=== PATIENT | female | born 1980 | race Caucasian/White ===

== ENCOUNTER → 2016-08-05 | Outpatient (CLI) | payer OTHER | LOC: FIMAGING 07:58 | PROVIDERS: ATTEND Obstetrics & Gynecology | DX: N92.0 Excessive and frequent menstruation with regular cycle (principal) ==

== ENCOUNTER 2018-06-22 20:28 | Emergency (ER) | payer OTHER ==
--- NOTE | 2018-06-22 21:04 | EDPHY ---
H & P Stated Complaint: c/o intermittent sharp abd pain x 4 days Time Seen by Provider: 06/22/18 20:38 HPI/ROS: CHIEF COMPLAINT: and abdominal pain History by patient HISTORY OF PRESENT ILLNESS: 37-year-old woman presents complaining of approximately 1 week of bilateral lower abdominal pain which she says feels pulling and sharp and intermittent and somewhat like symptoms she gets when she gets her menses. However her last menstrual period was May 24 and her tano tells her that she is late. This prompted her to take a home test which was positive x2. She denies any nausea or vomiting or change in bowels. She has had no vaginal bleeding or discharge. She denies any urinary symptoms. She denies any back pain. She has had no fainting. She has has had some similar pain like symptoms for over year and had a ovarian ultrasound in the past. She is concerned because her essrrd-ra-hsm had an ectopic a few months ago. Patient's previous 2 pregnancies were delivered by due to failure of labor to progress at term. REVIEW OF SYSTEMS: As in HPI, and all other systems reviewed and are negative Source: Patient - Personal History LMP (Females 10-55): Over 28 Days Ago Current Tetanus Diphtheria and Acellular Pertussis (TDAP): Yes Tetanus Vaccine Date: < 10 years - Medical/Surgical History Hx Asthma: No Hx Chronic Respiratory Disease: No Hx Diabetes: No Hx Cardiac Disease: No Hx Renal Disease: No Hx Cirrhosis: No Hx Alcoholism: No Hx HIV/AIDS: No Hx Splenectomy or Spleen Trauma: No Other PMH: none reported - Social History Smoking Status: Never smoked - Physical Exam Exam: General Appearance: Alert, nontoxic-appearing. Eyes: Pupils equal and round, extraocular movements intact, no pallor or injection. Mouth: Mucous membranes moist. Pharynx clear Respiratory: Normal, effort, lungs are clear to auscultation. No wheezes, rales or rhonchi. Cardiovascular: Regular rate and rhythm. S1, S2, no murmurs, gallops or rubs appreciated Gastrointestinal: bowel sounds present, Abdomen is soft and mild bilateral lower quadrant suprapubic tenderness, no masses, no rebound or guarding Back: No CVA tenderness, no bony tenderness Neurological: Awake, alert and oriented x 3, no pronator drift, normal gait, no pronator drift Skin: Warm and dry, no rashes. Musculoskeletal: No deformities or tenderness. Extremities: full range of motion, no edema Psychiatric: Patient has normal affect, there is no agitation. Constitutional: Initial Vital Signs Temperature (C) 36.9 C 06/22/18 20:40 Heart Rate 106 H 06/22/18 20:40 Respiratory Rate 16 06/22/18 20:40 Blood Pressure 131/85 H 06/22/18 20:40 O2 Sat (%) 99 06/22/18 20:40 O2 Delivery Mode Room Air Allergies/Adverse Reactions: No Known Allergies Allergy (Unverified 05/06/16 19:55) Home Medications: Medication Instructions Recorded NK [No Known Home Meds] 05/06/16 Medical Decision Making - Diagnostics Imaging Results: Imaging Impressions Obstetrics Ultrasound 06/22/18 21:01 Impression: No intrauterine is visualized. Complex cystic lesion in the left adnexa which could represent a corpus luteum cyst measuring 2.3 cm. However ectopic in the left ovary cannot be excluded with the lack of an intrauterine . Recommend follow-up and correlation with beta hCG. Results called and discussed with Laura Wallace MD at 06/22/2018 22:39. ED Course/Re-evaluation: 37-year-old presents in early with lower abdominal pain. I performed a rapid screening bedside ultrasound which showed no evidence of free fluid in her pelvis. I was unable to visualize an intrauterine transabdominally. Quantitative HCG and AB Rh typing have been sent. Formal ultrasound to evaluate for ectopic has been ordered. I discussed the ultrasound with the radiologist. No IUP was visualized. There is a complex mass in the left adnexa which the radiologist thought was possibly a corpus luteum cyst. There is minimal free fluid. Patient's heart rate remains slightly elevated in the ED. I discussed the case with Dr. Saucedo, on- call for OB. She recommends repeat beta HCG in 48 hr and she will follow up with the patient after that unless the patient is unstable in which case she will admit the patient for observation. H&H was slightly low with hemoglobin 11.2 compared to prior 4 years ago of 12.4. However, her tachycardia has resolved her blood pressure is stable. I think it is reasonable at this point to discharge the patient have a repeat HCG in 48 hr with close return precautions. We discussed return precautions including but not limited to onset of vaginal bleeding, worsening pain, fainting shortness of breath chest pain or other worsening. Patient understands and is agreeable to this plan. - Data Points Laboratory Results: 06/22/18 06/22/18 06/22/18 23:04 21:02 21:02 POC Hgb 11.2 gm/dL L gm/dL (12.6-16.3) POC Hct 33 % L % (38-47) POC Sodium 140 mEq/L mEq/L (135-145) POC Potassium 3.8 mEq/L mEq/L (3.3-5.0) POC Chloride 107 mEq/L mEq/L (97-110) POC BUN 11 mg/dL mg/dL (7-23) POC Creatinine 0.9 mg/dL mg/dL (0.6-1.0) POC Glucose 96 mg/dL mg/dL (70-100) Beta HCG, Quant 1884.60 mIU/mL H mIU/mL (0.00-4.83) Patient ABO/Rh B NEGATIVE Medications Given: Discontinued Medications Sodium Chloride (Ns) 1,000 mls @ 0 mls/hr IV ONCE ONE; Wide Open PRN Reason: Protocol Stop: 06/22/18 21:11 Last Admin: 06/22/18 21:14 Dose: 1,000 mls Point of Care Test Results: Chemistry 06/22/18 23:04 POC Sodium 140 mEq/L mEq/L (135-145) POC Potassium 3.8 mEq/L mEq/L (3.3-5.0) POC Chloride 107 mEq/L mEq/L (97-110) POC BUN 11 mg/dL mg/dL (7-23) POC Creatinine 0.9 mg/dL mg/dL (0.6-1.0) POC Glucose 96 mg/dL mg/dL (70-100) ISTAT H&H 06/22/18 23:04 POC Hgb 11.2 gm/dL L gm/dL (12.6-16.3) POC Hct 33 % L % (38-47) Departure - Departure Disposition: Home, Routine, Self-Care Clinical Impression: Qualifiers: Weeks of gestation: less than 8 weeks Qualified Code(s): Z3A.01 - Less than 8 weeks gestation of Abdominal pain during Qualifiers: Trimester: first trimester Qualified Code(s): O26.891 - Other specified related conditions, first trimester; R10.9 - Unspecified abdominal pain; R10.9 - Unspecified abdominal pain Condition: Fair Instructions: Ectopic (DC), (ED) Additional Instructions: Please have your beta HCG repeated on Monday at the [facility]. Dr. Saucedo, from Obstetrics and Gynecology will call you with the results and arrange for follow-up. Please call the ER or Dr. Saucedo if you have not heard from her after the results of your test on Monday. Return immediately to the emerged department if he develops any vaginal bleeding , worsening pain, fainting or other new concerns. Referrals: Patient,NotPresent [Primary Care Provider] - As per Instructions Eunice Saucedo MD [Medical Doctor] - As per Instructions
[2018-06-22] MEDS ORDERED: NS 1,000 ML IV ONE (21:10)
[2018-06-22 23:02] VITALS: BP 118/62
== END 2018-06-22 23:30 | disposition home or self-care (01) ==
LOC: CED 20:28 → EEVIPCON 20:28 → CED 23:30
DX: O26.891 Other specified pregnancy related conditions, first trimester (principal); R10.9 Unspecified abdominal pain; E86.9 Volume depletion, unspecified; Z3A.01 Less than 8 weeks gestation of pregnancy
CPT/HCPCS: 82435-PO; 82565-PO; 82947-PO; 84132-PO; 84295-PO; 84520-PO; 85014-ER; 96360-ER

== ENCOUNTER 2018-06-23 15:39 | Observation (INO) | payer OTHER ==
[2018-06-23] MEDS ORDERED: METHOTREXATE 25 MG/ML SYRINGE IM ONE (15:59)
[2018-06-23 16:24] LABS: PLATELET COUNT 210 10^3/uL (150-400)
--- NOTE | 2018-06-23 17:52 | GHP ---
DATE OF ADMISSION: 06/23/2018 HISTORY: Upon admission, the patient is a 37-year-old, G3, P2, female who presents to Labor and delivery today deciding that she wants to proceed with methotrexate treatment for an early pregn avery with concern for ectopic in light of the continuing left lower quadrant pain. The patient was e valuated in the emergency room on June 22, at which time she presented because of bilateral lower abdominal pain happening off and on for the prior week. The patient reports a continuous pain approx imately 2/10 and a pulling sensation in her left lower quadrant, but sharper episodes of pain up to 5 /10 that have been persisting. The patient states she is about 4-1/2 weeks from her sure last menstr ual period on May 24, and had 2 positive tests at home. When she went to the emerge ncy room last night, her was confirmed with an HCG level of 1884. The patient had an ultra sound on June 22 that did not visualize an intrauterine . No evidence of a gestational s ac or yolk sac, with a complex lesion in the left ovary 2.2 x 2.3 cm consistent with possibly a corpu s luteum cyst. There was no sign of free fluid and there was normal flow to the ovaries. A left ect opic could not be excluded. The patient was hemodynamically stable and she was given options with th e plan to follow up in 48 hours for repeat lab tests. The patient was advised if this was an early e ctopic of an option of treatment with methotrexate versus surgery if she progresses too far. The pat ient has considered her options and is unexpectedly and does not want to continue the pregna ncy whether it is intrauterine or ectopic. The patient has decided to proceed with the methotrexate to avoid any risk for having surgery. The patient is thoroughly counseled about methotrexate treatme nt with potential side effects and the possibility that the does not stop with the shot, an d the patient might have rupture of the tube and still need to have subsequent surgery; however, has good success likelihood with the methotrexate. The patient has been advised of the risk and has sign ed the informative sheet. She is well aware of the followup that is necessary to follow the HCG leve ls down to 0. The patient agrees to come to the labs on day 4 and 7 and then weekly thereafter. She is advised to follow up at [facility] for an appointment this week. PAST MEDICAL HISTORY: Negative. PAST SURGICAL HISTORY: The patient has had gum grafting. PAST OBSTETRIC HISTORY: Two term deliveries by section. ALLERGIES: The patient has no known drug allergies. CURRENT MEDICATIONS: None. SOCIAL HISTORY: The patient has never smoked, denies any excessive alcohol use or other drug use. T he patient lives with her and has 2 children, 18 and 14. The patient is a [employer] employee. PAST [employer] HISTORY: The patient is not currently on control. She has had regular menstrual cycl es monthly. Denies any history of sexually transmitted infections. REVIEW OF SYSTEMS: The patient is not having any problems, other than above noted with the left lowe r quadrant pulling and episodes of pain. No current abnormal vaginal discharge or bleeding. The pat ient is urinating fine and normal bowel movements. PHYSICAL EXAM: GENERAL: The patient is a well-developed, well-nourished female in no acute distress. VITAL SIGNS: The patient is clinically afebrile and also has a temp of 37.1. Her blood pressure is 129/60 and pulse is 90. The patient's height is 5 feet 3 inches and weight 150 pounds. LUNGS: Clear to auscultation bilaterally. CARDIOVASCULAR: Regular rate and rhythm. ABDOMEN: Soft and nontender. However, with deep palpation in the left lower quadrant there is mild soreness. PEL LUIS CARLOS: Deferred. LABORATORY DATA: Current lab values reveal a normal white count with H and H of 11 and 33.8 with kelly telet count of 210,000. Complete metabolic panel reveals normal levels with a creatinine of 0.8 and normal liver function tests. HCG level now is 2648.9. ASSESSMENT: Early with left lower quadrant pain. This was an undesired , but wit h the concern for possible ectopic the patient wants to proceed with methotrexate treatment. She is given the risks and benefits and is stable at this point and is an appropriate candidate for methotre xate. She is understanding and agrees with the followup with labs. By most protocols with 50 mg per meter squared, the patient's dose recommendation is between 85 and 88, and so a dose of 90 mg is giv en IM to the patient. The patient's blood plus type noted on June 22 is B negative and the patien t is also given a RhoGAM shot before discharge. PLAN: The patient will call [facility] for appointment later this week and certainly will be re-presenting to the emergency room if she has any acute worsening of pain or extreme vaginal blee ding or dizziness, etcetera. The patient is given the lab slips for the followups on day 4 and day 7 and then weekly thereafter. 45 minutes is spent [id number] in patient contact. /[id number]/MODL
== END 2018-06-23 17:19 | disposition home or self-care (01) ==
LOC: FOBOP 15:39 → FLD 15:59
PROVIDERS: ADMIT Obstetrics & Gynecology; ATTEND Obstetrics & Gynecology
PROC: 3E023GC Introduction of Other Therapeutic Substance into Muscle, Percutaneous Approach (ICD-10-PCS; principal; 2018-06-23)
DX: R10.32 Left lower quadrant pain (principal); R93.89 Abnormal findings on diagnostic imaging of other specified body structures; Z33.1 Pregnant state, incidental
CPT/HCPCS: 96372; G0378; J9250